=== PATIENT | male | born 1955 | race Caucasian/White ===

== ENCOUNTER 2018-10-13 11:47 | Emergency (ER) | payer MEDICARE, OTHER ==
[2018-10-13] MEDS ORDERED: MORPHINE SULFATE INJ 10 MG/ML VIAL ONE (11:51)
--- NOTE | 2018-10-13 12:06 | ED.PDOC ---
History of Present Illness - General Chief Complaint: Chest Pain/OR Stated Complaint: chest pain Time Seen by Provider: 10/13/18 12:03 Source: patient, EMS Exam Limitations: no limitations - History of Present Illness Initial Comments: Matt Chambers 63 y/o male brought by EMS to ER with sharp chest pain started at 0900H which got worse for the last 2-3 hours.Had cold sweats,radiates to neck and arms.Denies previous cardiac history. Timing/Duration: 1-3 hours Severity: moderate Location: central Activities at Onset: activity Prior Chest Pain/Cardiac Workup: no prior chest pain Improving Factors: nothing Worsening Factors: nothing Nitro Today/Relief: 0.4 mg x 3 Aspirin Treatment Today: 81 mg x 4 Associated Symptoms: other - see hpi Allergies/Adverse Reactions: Allergies NO KNOWN ALLERGY Allergy (Verified 10/13/18 12:09) Home Medications: Ambulatory Orders Ranitidine HCl [Ranitidine 75] 75 mg PO DAILY 10/13/18 Review of Systems - Review of Systems Constitutional: States: no symptoms reported EENTM: States: no symptoms reported Respiratory: States: no symptoms reported Cardiology: States: see HPI Gastrointestinal/Abdominal: States: no symptoms reported Genitourinary: States: no symptoms reported Musculoskeletal: States: no symptoms reported Neurological: States: no symptoms reported All other Systems: Reviewed and Negative, No Change from Baseline Past Medical History (General) - Patient Medical History Surgical History: no surgical history - Social History Hx Tobacco Use: Yes Family Medical History - Family History Father Hx Cardiac Disease: Yes - multiple family members Hx Family Diabetes: Yes - multiple family members Mother Family History: Unknown Physical Exam - Physical Exam General Appearance: Alert, Comfortable, No apparent distress Eyes, Ears, Nose, Throat Exam: normal ENT inspection Neck: non-tender, full range of motion, supple, normal inspection Respiratory: lungs clear, normal breath sounds, no respiratory distress Cardiovascular/Chest: normal peripheral pulses, regular rate, rhythm, no murmur Peripheral Pulses: radial,right: 2+, radial,left: 2+ Gastrointestinal/Abdominal: non tender, soft Extremity: no pedal edema, no calf tenderness Neurologic: alert, oriented x 3 Skin Exam: normal color, warm/dry Progress - Progress Progress: 10/13/18 12:08 Vital Signs - 24 hr 10/13/18 11:57 Temperature 96.8 F L Pulse Rate [ 75 monitor] Respiratory 20 Rate Blood Pressure 148/90 [la] O2 Sat by Pulse 96 Oximetry 10/13/18 12:14 Discuss case with manager architectural and patient EKG was sent he stated no STEMI to send patient to [facility] - Results/Orders Results/Orders: 10/13/18 12:00 EKG STAT 10/13/18 12:11 IV Care:Saline Lock per Protoc QSHIFT Telemetry .ONCE Pulse Ox Stat Laboratory Results - last 24 hr 10/13/18 12:20 WBC 10.6 RBC 5.78 Hgb 17.9 Hct 53.3 H MCV 92.2 MCH 30.9 MCHC 33.5 RDW 14.0 Plt Count 256 MPV 10.5 H Absolute Neuts (auto) 6.40 Absolute Lymphs (auto) 3.00 Absolute Monos (auto) 0.80 Absolute Eos (auto) 0.30 Absolute Basos (auto) 0.10 Neutrophils % 60.5 Lymphocytes % 28.4 Monocytes % 7.8 Eosinophils % 2.8 Basophils % 0.5 PT 9.5 INR 0.95 PTT (SP) 26.3 Sodium 135 Potassium 4.8 Chloride 98 L Carbon Dioxide 24 Anion Gap 17.8 BUN 14 Creatinine 0.80 BUN/Creatinine Ratio 17.5 Random Glucose 109 H Serum Osmolality 271.2 L Calcium 9.9 Magnesium 2.0 Total Bilirubin 0.6 Direct Bilirubin < 0.1 Indirect Bilirubin 0.5 AST 23 ALT 19 Alkaline Phosphatase 80 Creatine Kinase 70 CK-MB (CK-2) 3.1 CK-MB (CK-2) % Not Reportable Troponin I 0.02 B-Natriuretic Peptide 7.1 Serum Total Protein 7.5 Albumin 4.4 - EKG/XRAY/CT EKG: Sinus, nonspecific ST T wave Chg Comments: HR 92 Departure - Departure Clinical Impression: Chest pain Qualifiers: Chest pain type: chest pain due to myocardial ischemia Ischemic chest pain type: unstable angina pectoris Qualified Code(s): I20.0 - Unstable angina Time of Disposition: 12:16 Disposition: Transfer to Hospital Condition: Fair Departure Forms: Patient Portal Self Enrollment Referrals: Leo Tiwari MD [Primary Care Provider] - 1-2 Weeks Home Medications: Ambulatory Orders Ranitidine HCl [Ranitidine 75] 75 mg PO DAILY 10/13/18 Transfer to Outside Facility - Transfer Information Accepting Provider:: Dr. Butler Accepting Facility: [facility] Reason for Transfer: labor and delivery registered nurse - cardiolologist interventional
[2018-10-13] MEDS ORDERED: SODIUM CHLORIDE 0.9% (FLUSH) 10 ML SYG IV PRN (12:11)
[2018-10-13] MEDS ORDERED: ONDANSETRON INJ 4 MG/2 ML VIAL IV ONE (12:11)
[2018-10-13] MEDS ORDERED: ASPIRIN TABLET 325 MG TAB PO ONE (12:11)
[2018-10-13] MEDS ORDERED: NITROGLYCERIN 0.4 MG 25 EA TAB SL ONE (12:11)
[2018-10-13] MEDS ORDERED: HEPARIN PREMIX 500 ML ONE (12:12)
[2018-10-13] MEDS ORDERED: HEPARIN SODIUM (PORCINE) 5,000 U/ML VIAL ONE (12:12)
[2018-10-13 12:19] VITALS: TEMP 96.8
[2018-10-13] MEDS ORDERED: HEPARIN SODIUM (PORCINE) 5,000 U/ML VIAL IV ONE (12:23)
[2018-10-13] MEDS ORDERED: NITROGLYCERIN/D5W IV 50,000 MCG in PREMIX BOTTLE 1 BOTTLE IVS SCH (12:30)
[2018-10-13] MEDS ORDERED: HEPARIN PREMIX 25,000 UNITS in PREMIX BAG 1 BAG IVS SCH (12:30)
[2018-10-13] MEDS ORDERED: MORPHINE SULFATE INJ 10 MG/ML VIAL IV ONE ×2 (12:40→12:41)
[2018-10-13 12:54] VITALS: BP 118/70; O2SAT 98
--- NOTE | 2018-10-13 12:55 | RAD ---
CLINICAL HISTORY: stemi MAIN COMPARISON: None. TECHNIQUE: XR CHEST 1 VIEW 10/13/2018 11:54 AM CDT FINDINGS: Cardiac silhouette is normal in size. Lungs are clear without consolidation, atelectasis, mass or edema. There is no pleural effusion. There is no pneumothorax. There are no acute osseous findings. IMPRESSION: Clear lungs. Electronically signed by: Vladimir Medina MD 10/13/2018 12:54 PM CDT
== END 2018-10-13 12:49 | disposition short-term general hospital (02) ==
LOC: ER 11:47
DX: I20.0 Unstable angina (principal); I25.9 Chronic ischemic heart disease, unspecified; Z87.891 Personal history of nicotine dependence
CPT/HCPCS: 36415; 71045; 80048; 80076; 82550; 82553; 83880; 84484; 85025; 85610; 85730; 93005; 94760; J1644; J2270; J2405

== ENCOUNTER → 2018-11-04 | Outpatient (CLI) | payer MEDICARE, OTHER | LOC: SL 19:39 | PROVIDERS: ATTEND Emergency Medicine | DX: G47.33 Obstructive sleep apnea (adult) (pediatric) (principal) ==

== ENCOUNTER 2019-08-17 11:09 | Observation (INO) | payer MEDICARE, OTHER ==
[2019-08-17] MEDS ORDERED: SODIUM CHLORIDE 0.9% (FLUSH) 10 ML SYG IV PRN (11:31)
[2019-08-17] MEDS ORDERED: MECLIZINE HCL 12.5 MG TAB PO ONE (11:32)
--- NOTE | 2019-08-17 12:43 | RAD ---
EXAM DESCRIPTION: XRAY Chest,1 View CLINICAL HISTORY: 64 years Male, dizziness COMPARISON: October 13, 2018. FINDINGS: Cardiomediastinal silhouette is normal. Chronic appearing interstitial markings, unchanged. No focal consolidation, pneumothorax or pleural effusion. IMPRESSION: No acute findings. Electronically signed by: Anthony Hampton MD 08/17/2019 12:39 PM CDT
--- NOTE | 2019-08-17 12:50 | CT ---
EXAM DESCRIPTION: Head CLINICAL HISTORY: 64 years Male fall with head trauma and headache. TECHNIQUE: Axial noncontrast CT head with coronal and sagittal reformats. All CT scans at this facility use dose modulation, iterative reconstruction, and/or weight based dosing when appropriate to reduce radiation dose to as low as reasonably achievable. COMPARISON: None. FINDINGS: Left frontal paramedian hyperdense extra-axial mass measuring approximately 2.1 x 2.0 x 2.7 cm (TV x AP x CC).No intracranial hemorrhage, midline shift, hydrocephalus or extra-axial fluid collection. No obvious large territorial infarction. Atherosclerotic calcification of the intracranial vasculature. Orbits are normal. Moderate ethmoid sinus mucosal thickening. Mastoid air cells are clear. Osseous structures and soft tissues are unremarkable. IMPRESSION: 1. No acute findings. 2. A 2.7 cm left frontal hyperdense extra-axial mass favoring to represent a meningioma. This can be further evaluated with MRI brain with contrast. Electronically signed by: Anthony Hampton MD 08/17/2019 12:46 PM CDT
--- NOTE | 2019-08-17 13:11 | ED.PDOC ---
History of Present Illness - General Chief Complaint: Trauma Stated Complaint: Multiple fals, dizziness, CP, L arm pain Time Seen by Provider: 08/17/19 11:31 Source: patient, RN notes reviewed, Vital Signs reviewed Exam Limitations: no limitations - History of Present Illness Initial Comments: Patient is a 64-year-old white male who presents with complaints of dizziness and repeated falls over the last couple of days. Patient also states that he has a headache, moderate intensity, throbbing, worse when he stands up. Better when he lays down. The dizziness is worsened as well as the generalized fatigue when he stands up or attempts to walk. It improves markedly after he lays down and rests. All of his symptoms get worse with standing. Improved with resting. Patient also complains of palpitations and low heart rate. Timing/Duration: 24 hours - For the last 3 days, constant, getting worse Severity: moderate Improving Factors: rest Worsening Factors: movement Associated Symptoms: headaches, malaise, weakness Allergies/Adverse Reactions: Allergies NO KNOWN ALLERGY Allergy (Verified 08/17/19 12:00) Home Medications: Ambulatory Orders Aspirin [Aspirin Low Strength] 81 mg PO QAM 08/17/19 Atorvastatin Calcium 40 mg PO QPM 08/17/19 Benzonatate 100 mg PO TID PRN 08/17/19 Carvedilol 3.125 mg PO BID 08/17/19 Clopidogrel Bisulfate 75 mg PO DAILY 08/17/19 Famotidine 40 mg PO DAILY 08/17/19 Gabapentin 300 mg PO TID 08/17/19 Lisinopril 5 mg PO QAM 08/17/19 metFORMIN XR [Glucophage XR] 500 mg PO QAM 08/17/19 Review of Systems - Review of Systems Constitutional: States: see HPI, malaise, weakness. Denies: chills, fever EENTM: States: see HPI, blurred vision. Denies: double vision Respiratory: States: no symptoms reported. Denies: cough, short of breath, stridor, wheezing Cardiology: States: see HPI, palpitations. Denies: chest pain, syncope Gastrointestinal/Abdominal: States: no symptoms reported. Denies: abdominal pain, diarrhea, nausea, vomiting Genitourinary: States: no symptoms reported Musculoskeletal: States: no symptoms reported. Denies: back pain, neck pain Skin: States: no symptoms reported. Denies: change in color, dryness, rash Neurological: States: see HPI, headache, weakness, other - Dizziness and vertigo. Endocrine: States: no symptoms reported Hematologic/Lymphatic: States: no symptoms reported All other Systems: Reviewed and Negative, No Change from Baseline Past Medical History (General) - Patient Medical History Hx Stroke: No Hx Asthma: Yes Hx of COPD: No Hx Cardiac Disorders: Yes - AZ and stent Hx Congestive Heart Failure: No Hx Hypertension: Yes Hx Diabetes: Yes Hx Gastroesophageal Reflux: Yes Hx Cancer: No Hx Hepatitis C: No Surgical History: coronary bypass surgery, other - Vaccination History Hx Tetanus, Diphtheria Vaccination: No Hx Influenza Vaccination: No Hx Pneumococcal Vaccination: No - Social History Hx Tobacco Use: Yes Hx Alcohol Use: No Hx Substance Use: No Hx Substance Use Treatment: No Hx Depression: No - Female History Patient is a Female of Child Bearing Age (10 -59 yrs old): No Patient : No Family Medical History - Family History Mother Family History: Unknown Father Hx Cardiac Disease: Yes - multiple family members Hx Family Diabetes: Yes - multiple family members Physical Exam - Physical Exam General Appearance: Alert, Anxious, Obvious distress, Obese, Well Developed, Well Groomed, Well Hydrated, Well Nourished Eye Exam: bilateral normal Ears, Nose, Throat: hearing grossly normal, normal ENT inspection, normal pharynx Neck: non-tender, full range of motion, supple, normal inspection Respiratory: chest non-tender, lungs clear, normal breath sounds, no respiratory distress, no accessory muscle use Cardiovascular/Chest: normal peripheral pulses, no edema, no gallop, no murmur, bradycardia - Marked bradycardia in the high 30s. Peripheral Pulses: radial,right: 2+, radial,left: 2+ Gastrointestinal/Abdominal: normal bowel sounds, non tender, soft Back Exam: normal inspection, no CVA tenderness, no vertebral tenderness Extremity: normal range of motion, non-tender, normal inspection Neurologic: adjuster electrical contacts II-XII nml as tested, no motor/sensory deficits, alert, normal mood/affect, oriented x 3 Skin Exam: normal color, warm/dry Lymphatic: no adenopathy Progress - Progress Progress: Differential diagnosis: Acute AZ, medication reaction, skull fracture, intracranial bleed among others. 08/17/19 13:32 Patient's EKG with marked bradycardia. I suspect this is secondary to his carvedilol. Troponin is negative. Chest x-ray is unremarkable. Head CT shows no fracture or enter cranial bleed. Patient is improved in regards to his vertigo after the meclizine, but he is still dizzy. Plan on admission to the hospital for further evaluation. I have discussed this plan of care with the patient and his and they voiced understanding and agreement. I discussed this with Aleksandr Abraham NP, and he has graciously accepted the patient for admission. Blade Pagan M.D. #[id number] - Results/Orders Results/Orders: EXAM DESCRIPTION: Head CLINICAL HISTORY: 64 years Male fall with head trauma and headache. TECHNIQUE: Axial noncontrast CT head with coronal and sagittal reformats. All CT scans at this facility use dose modulation, iterative reconstruction, and/or weight based dosing when appropriate to reduce radiation dose to as low as reasonably achievable. COMPARISON: None. FINDINGS: Left frontal paramedian hyperdense extra-axial mass measuring approximately 2.1 x 2.0 x 2.7 cm (TV x AP x CC).No intracranial hemorrhage, mid line shift, hydrocephalus or extra-axial fluid collection. No obvious large territorial infarction. Atherosclerotic calcification of the intracranial vasculature. Orbits are normal. Moderate ethmoid sinus mucosal thickening. Mastoid air cells are clear. Osseous structures and soft tissues are unremarkable. IMPRESSION: 1. No acute findings. 2. A 2.7 cm left frontal hyperdense extra- axial mass favoring to represent a meningioma. This can be further evaluated with MRI brain with contrast. Electronically signed by: Anthony Hampton MD 08/17/2019 12:46 PM EXAM DESCRIPTION: XRAY Chest,1 View CLINICAL HISTORY: 64 years Male, dizziness COMPARISON: October 13, 2018. FINDINGS: Cardiomediastinal silhouette is normal. Chronic appearing interstitial markings, unchanged. No focal consolidation, pneumothorax or pleural effusion. IMPRESSION: No acute findings. Electronically signed by: Anthony Hampton MD 08/17/2019 12:39 PM EKG performed 17 August 2019 1117 hrs.: Marked sinus bradycardia at 47 bpm, left axis deviation, possible anterior infarct, age indeterminate, abnormal EKG. No previous EKG available for comparison at this time. 08/17/19 11:30 CARDIAC ENZYME GROUP Stat COMPLETE METABOLIC PROFILE Stat 08/17/19 11:31 Sodium Chloride 0.9% (Flush) [Saline Flush Syringe] 10 ml IV PRN PRN 08/17/19 11:45 EKG STAT Laboratory Results - last 24 hr 08/17/19 08/17/19 08/17/19 10:28 11:30 11:30 WBC 7.4 RBC 4.66 L Hgb 14.6 Hct 44.7 MCV 96.0 H MCH 31.4 H MCHC 32.7 L RDW 13.1 Plt Count 209 MPV 10.0 Absolute Neuts (auto) 4.10 Absolute Lymphs (auto) 2.20 Absolute Monos (auto) 0.70 Absolute Eos (auto) 0.30 Absolute Basos (auto) 0.10 Neutrophils % 55.1 Lymphocytes % 30.0 Monocytes % 9.8 H Eosinophils % 4.3 Basophils % 0.8 PT INR PTT (SP) Sodium 139 Potassium 4.6 Chloride 107 Carbon Dioxide 26 Anion Gap 10.6 L BUN 12 Creatinine 0.73 BUN/Creatinine Ratio 16.4 POC Glucose Random Glucose 106 H Serum Osmolality 277.7 Calcium 9.2 Total Bilirubin 0.6 AST 20 ALT 20 Alkaline Phosphatase 68 Creatine Kinase 69 CK-MB (CK-2) 3.1 Troponin I 0.03 B-Natriuretic Peptide Serum Total Protein 6.9 Albumin 4.0 Globulin 2.9 Albumin/Globulin Ratio 1.4 Urine Color Yellow Urine Appearance Clear Urine pH 6.0 Ur Specific [place] 1.010 Urine Protein Negative Urine Glucose (UA) Negative Urine Ketones Negative Urine Blood Negative Urine Nitrite Negative Urine Bilirubin Negative Urine Urobilinogen 0.2 Ur Leukocyte Esterase Negative Urine RBC 0 Urine WBC 0 Ur Epithelial Cells 0 Urine Bacteria 0 08/17/19 08/17/19 08/17/19 11:30 11:30 11:30 WBC RBC Hgb Hct MCV MCH MCHC RDW Plt Count MPV Absolute Neuts (auto) Absolute Lymphs (auto) Absolute Monos (auto) Absolute Eos (auto) Absolute Basos (auto) Neutrophils % Lymphocytes % Monocytes % Eosinophils % Basophils % PT 10.2 INR 1.03 PTT (SP) 24.7 Sodium Potassium Chloride Carbon Dioxide Anion Gap BUN Creatinine BUN/Creatinine Ratio POC Glucose 95 Random Glucose Serum Osmolality Calcium Total Bilirubin AST ALT Alkaline Phosphatase Creatine Kinase CK-MB (CK-2) Troponin I B-Natriuretic Peptide 9.6 Serum Total Protein Albumin Globulin Albumin/Globulin Ratio Urine Color Urine Appearance Urine pH Ur Specific [place] Urine Protein Urine Glucose (UA) Urine Ketones Urine Blood Urine Nitrite Urine Bilirubin Urine Urobilinogen Ur Leukocyte Esterase Urine RBC Urine WBC Ur Epithelial Cells Urine Bacteria Vital Signs 08/17/19 08/17/19 08/17/19 11:10 11:13 12:00 Temperature 97.6 F Pulse Rate [ 45 L 45 L 39 L Pulse ox] Respiratory 16 16 10 L Rate Blood Pressure 179/71 148/65 [L brachial] O2 Sat by Pulse 95 95 Oximetry 08/17/19 13:00 Temperature Pulse Rate [ 37 L Pulse ox] Respiratory 16 Rate Blood Pressure 123/70 [L brachial] O2 Sat by Pulse 95 Oximetry - EKG/XRAY/CT CT Ordered: Yes Departure - Departure Clinical Impression: Symptomatic bradycardia, Dizziness Idiosyncratic reaction to medication after proper dose Qualifiers: Encounter type: initial encounter Qualified Code(s): T50.905A - Adverse effect of unspecified drugs, medicaments and biological substances, initial encounter Time of Disposition: 13:35 Disposition: Admit Patient Condition: Fair Departure Forms: ED Discharge - Pt. Copy, Patient Portal Self Enrollment Referrals: BELEN MCCANN [Primary Care Provider] - 1-2 Weeks Home Medications: Ambulatory Orders Aspirin [Aspirin Low Strength] 81 mg PO QAM 08/17/19 Atorvastatin Calcium 40 mg PO QPM 08/17/19 Benzonatate 100 mg PO TID PRN 08/17/19 Carvedilol 3.125 mg PO BID 08/17/19 Clopidogrel Bisulfate 75 mg PO DAILY 08/17/19 Famotidine 40 mg PO DAILY 08/17/19 Gabapentin 300 mg PO TID 08/17/19 Lisinopril 5 mg PO QAM 08/17/19 metFORMIN XR [Glucophage XR] 500 mg PO QAM 08/17/19 Decision To Admit - Decistion To Admit Decision to Admit Date: 08/17/19 Decision to Admit Time: 13:00
--- NOTE | 2019-08-17 13:33 | HP ---
SUPERVISING PHYSICIAN: Micky Tariq MD CHIEF COMPLAINT: Dizziness, chest pain. HISTORY OF PRESENT ILLNESS: Mr. Chambers is a 64-year-old male patient who presented to the Emergency Department today with complaint of multiple falls over the last week as well as chest pain that has apparently been present over three weeks. He describes that he has been having some mild chest pain that seems to be more sharp, reproducible with palpation of the chest wall. He has been helping his brother apparently remodel a house and at some point fell through some rafters and he actually does on exam have a large bruise, ecchymotic area to his left upper quadrant, but no bruising to the chest. He also has a history of vertigo and has been complaining of vertigo over the last several days, which normally he can just slowly adjust himself, but it apparently it got worse today. In the Emergency Room, he was given meclizine which did resolve his dizziness. He still has some mild dizziness when he stands up, but has noted that on the heart monitor, he was actually bradycardia with a heart rate in the low 40s to high 30s at times although his blood pressure is stable with his initial blood pressure in the Emergency Room of 179/71 with a heart rate of 45. He does take a beta nataliia in the form of carvedilol and he had a stent placement due to chest pains last year by Dr. Butler. Again, he endorses his chest pain has been present for a little over three weeks. It does not really seemed to be worsened by exertional effort, but it is reproducible at times. His labs in the Emergency Room showed his troponin to be at 0.03. His electrolytes were normal. Calcium normal. CBC showed normal white count at 7,400 without a left shift. Urinalysis was unremarkable. 12-lead EKG showed sinus bradycardia with no ST or T wave changes noted. Given his bradycardic rhythm and that he is on a beta nataliia with concerns that his dosing may need to be readjusted and some of his dizziness may be attributed to his beta nataliia along with his chronic vertigo. He also again is having chest pains and will need to be placed in observation for further management of his bradycardia with close observation and further rule out of acute coronary syndrome. He did have a CT of the head without contrast which per radiologic interpretation showed a hyperdense extraaxial mass measuring about 2.7 cm that represents possible meningioma and in talking to the patient, he is not aware of any previous findings on any CTs in the past, but denies any other neurologic symptoms other than dizziness, which again resolved with meclizine. PAST MEDICAL HISTORY: 1. Diabetes mellitus, type 2. 2. Chronic vertigo. 3. Cardiovascular disease with stent placement x1 in the past year. 4. Obstructive sleep apnea utilizing CPAP. PAST SURGICAL HISTORY: 1. Bilateral cataracts. 2. Left ankle surgery in his 20s. HOME MEDICATIONS: 1. Benzoate 100 mg t.i.d. as needed. 2. Aspirin 81 mg daily. 3. Metformin 500 mg daily. 4. Famotidine 40 mg daily. 5. Carvedilol 3.125 mg b.i.d. 6. Atorvastatin 40 mg daily. 7. Plavix 75 mg daily. 8. Gabapentin 300 mg b.i.d. 9. Lisinopril 5 mg daily. ALLERGIES: NO KNOWN DRUG ALLERGIES. FAMILY HISTORY: Both mother and father are and had history of cancer, but he is not sure what they were, otherwise unremarkable. SOCIAL HISTORY: The patient is and lives in [place]. He is retired. He does smoke, currently he says 3 to 4 cigarettes a day, but in the past several years before this, he was smoking up to one pack a day well over 40 years. He denies any alcohol or illicit drug usage. REVIEW OF SYSTEMS: CONSTITUTIONAL: Positive for general malaise and weakness as noted in history of present illness. Negative for any fevers, chills or unintentional weight loss. HEENT: Positive for some blurred vision associated with his dizziness and possible pre-syncopal episode. Negative for headaches, sore throats, earaches, nasal congestion. RESPIRATORY: Denies coughing, wheezing, shortness of breath. CARDIOVASCULAR: As noted in history of present illness, palpitations with chest pressure. He denies any actual chest pain. He has had apparently some presyncopal episodes. GASTROINTESTINAL: Negative for nausea, vomiting, diarrhea, constipation or abdominal pain. GENITOURINARY: Negative for dysuria, hematuria, polyuria. MUSCULOSKELETAL: Negative for back pain, arthralgias. SKIN: Negative for lesions, rashes, moles or unexplained changes. He does have an area of ecchymosis from a past fall. NEUROLOGIC: As noted in history of present illness, some dizziness with associated vertigo. Denies any headaches. He does have some generalized weakness. No other focal motor deficits, no vision changes other than blurred vision associated with the dizziness that resolves. HEMATOLOGIC: Denies easy bruising, unexplained bleeding or transfusion reactions. PHYSICAL EXAMINATION: VITAL SIGNS: Temperature 97.6, pulse 45, blood pressure 179/71, respirations 16, saturation 95% on room air. GENERAL: The patient is resting comfortably. He does appear tired, but just took a dose of meclizine prior to admission. He is in no acute distress. He is a little obese, but well hydrated. HEENT: Tympanic membranes clear bilaterally. Oropharynx is pink, moist without any lesions. NECK: Supple, nontender with full range of motion. No jugular venous distention noted. CHEST: There is some chest wall tenderness over the third and fourth intercostal spaces, just above the nipple, midclavicular line. Chest wall does show equal excursion. No obvious rales, rhonchi or wheezing. Breath sounds equal bilaterally. CARDIOVASCULAR: Regular rate and rhythm without any appreciable murmurs, gallops, or rubs. It was showing bradycardia on the monitor in the high 30s to 40s. ABDOMEN: Obese, but soft, nontender. Positive bowel sounds. There is an area of ecchymosis to the left upper quadrant that is a little tender on palpation, but appears to be to be old. BACK: Without any obvious trauma. There is no CVA tenderness, no vertebral tenderness demonstrated. EXTREMITIES: There is no cyanosis, clubbing or edema. NEUROLOGIC: Cranial nerves II-XII are grossly intact. Facial features are symmetrical. Extraocular movements are within normal limits. There is no nystagmus noted. The patient is alert and oriented times three. LABORATORY: CBC showed white count 7,400, hemoglobin 14.6, hematocrit 44.7. Differential was without a left shift. RBCs indices indicated a macrocytosis. Coagulation studies showed normal PT, PTT. Chemistries showed normal electrolytes, creatinine 0.73, glucose 95. Liver functions all within normal limits. TSH pending. BNP normal at 9.6. Initial troponins x2 were 0.03. Urinalysis was within normal limits. RADIOLOGY: Chest x-ray per radiologic interpretation showed no acute findings. CT of the head without contrast per radiologic interpretation showed no acute findings, but there was note of a 2.7 cm left frontal hyperdense extraaxial mass which favors to represent a meningioma. Recommendation was to followup with MRI of the brain with contrast for further evaluation. ASSESSMENT: 1. Symptomatic bradycardia, currently on a beta nataliia. 2. Chest pain that is reproducible with initial workup showing negative troponins, needing extended rule out with the patient having history of previous stent placement. 3. Diabetes mellitus, type 2. 4. Hypertension. 5. History of vertigo with acute episode, resolving with meclizine. 6. Finding on CT of the head of a 2.7 cm hyperdense extraaxial mass favoring possible meningioma, needing further workup as an outpatient with an MRI with contrast. PLAN: Mr. Chambers is going to be placed in observation on close cardiac telemetry monitoring. I suspect that his bradycardia is more likely related to his beta nataliia, but I cannot completely rule out an acute coronary event although the patient's chest pain seems to be reproducible and he does have previous stent placement although he describes his chest pain as being present for three weeks. We will hold his beta nataliia tonight. It may need to be decreased in dosage, but we will certainly need to touch base with Dr. Butler tomorrow if possible, who is his business technology analyst, if the bradycardia does not seem to be resolving without change in his medication. I have ordered some orthostatic blood pressures. He does not appear to be hypovolemic. We will hold off on any additional fluids at this point. We will resume all his other medications as appropriate to his care. He will be on DVT prophylaxis with Lovenox. I did discuss getting his CPAP up here, but he has no way to get it up here tonight. I anticipate he will probably go home tomorrow, so he should do fine tonight. We will utilize oxygen and watch him closely. We will repeat his enzymes and EKG as appropriate for further rule out of acute coronary syndrome. His primarily doctor is Dr. Goel and, again, he sees Dr. Butler. If his symptoms do not seem to be improving as expected with holding of his medications, we will need to touch base with Dr. Butler. Until the patient can transition to outpatient management, we will continue to monitor and treat as needed. #[id number] [facility]
[2019-08-17] MEDS ORDERED: DEXTROSE 50% 25 GM/50 ML SYG IV PRN (14:12)
[2019-08-17] MEDS ORDERED: GLUCAGON INJ 1 MG VIAL SUBCU PRN (14:12)
[2019-08-17] MEDS ORDERED: IV SET AND CAP CHANGE INJ INJ SCH (14:30)
[2019-08-17] MEDS ORDERED: NITROGLYCERIN 0.4 MG 25 EA TAB SL PRN (14:38)
[2019-08-17] MEDS ORDERED: NITROGLYCERIN 0.4 MG 25 EA TAB SL ONE (14:38)
[2019-08-17] MEDS ORDERED: KETOROLAC TROMETHAMINE INJ 30 MG/ML VIAL IV ONE (14:41)
[2019-08-17] MEDS: NITROGLYCERIN 0.4 MG/HR PATCH TOP SCH (15:40)
[2019-08-17] MEDS: INSULIN LISPRO 100 UNITS/ML PEN SUBCU SCH ×2 (16:35→21:24)
[2019-08-17] MEDS ORDERED: ENOXAPARIN SODIUM 40 MG/0.4 ML SYG SUBCU SCH (21:00)
[2019-08-17] MEDS: GABAPENTIN 300 MG CAP PO SCH (21:14)
[2019-08-18] MEDS ORDERED: SODIUM CHLORIDE 0.9% 1000ML 1,000 ML IVS ONE (02:20)
[2019-08-18] MEDS: INSULIN LISPRO 100 UNITS/ML PEN SUBCU SCH ×2 (07:19→12:07)
[2019-08-18] MEDS ORDERED: CLOPIDOGREL 75 MG TAB PO SCH (09:00)
[2019-08-18] MEDS ORDERED: LISINOPRIL 5 MG TAB PO SCH (09:00)
[2019-08-18] MEDS ORDERED: ASPIRIN (CHEWABLE) 81 MG TAB PO SCH (09:00)
[2019-08-18] MEDS ORDERED: metFORMIN XR 500 MG TAB.ER.24 PO SCH (09:00)
[2019-08-18] MEDS ORDERED: FAMOTIDINE 20 MG TAB PO SCH (09:00)
[2019-08-18] MEDS: GABAPENTIN 300 MG CAP PO SCH (09:40)
[2019-08-18] MEDS: NITROGLYCERIN 0.4 MG/HR PATCH TOP SCH (09:40)
[2019-08-18 13:45] VITALS: BP 113/58; TEMP 98; O2SAT 95
[2019-08-18] MEDS ORDERED: ATORVASTATIN 20 MG TAB PO SCH (21:00)
[2019-08-18] MEDS ORDERED: REMOVE OLD PATCH TOP SCH (21:00)
--- NOTE | 2019-08-19 10:09 | DS ---
SUPERVISING PHYSICIAN: Bhavana Ruth MD DISCHARGE DIAGNOSIS: 1. Symptomatic bradycardia, currently on a beta nataliia, although it has been discontinued by Dr. Butler. 2. Chest pain that is reproducible with initial workup showing negative troponins, needing extended rule out with the patient having history of previous stent placement. 3. Diabetes mellitus, type 2. 4. Hypertension. 5. History of vertigo with acute episode, resolving with meclizine. 6. Finding on CT of the head of a 2.7 cm hyperdense extraaxial mass favoring possible meningioma, needing further workup as an outpatient with an MRI with contrast. HISTORY OF PRESENT ILLNESS: This is a 64-year-old male patient who presented to the Emergency Department today with complaint of multiple falls over the last week as well as chest pain that has apparently been present over three weeks. He describes that he has been having some mild chest pain that seems to be more sharp, reproducible with palpation of the chest wall. He has been helping his brother apparently remodel a house and at some point fell through some rafters and he actually does on exam have a large bruise, ecchymotic area to his left upper quadrant, but no bruising to the chest. He also has a history of vertigo and has been complaining of vertigo over the last several days, which normally he can just slowly adjust himself, but it apparently it got worse today. In the Emergency Room, he was given meclizine which did resolve his dizziness. He still has some mild dizziness when he stands up, but has noted that on the heart monitor, he was actually bradycardia with a heart rate in the low 40s to high 30s at times although his blood pressure is stable with his initial blood pressure in the Emergency Room of 179/71 with a heart rate of 45. He does take a beta nataliia in the form of carvedilol and he had a stent placement due to chest pains last year by Dr. Butler. Again, he endorses his chest pain has been present for a little over three weeks. It does not really seemed to be worsened by exertional effort, but it is reproducible at times. His labs in the Emergency Room showed his troponin to be at 0.03. His electrolytes were normal. Calcium normal. CBC showed normal white count at 7,400 without a left shift. Urinalysis was unremarkable. 12-lead EKG showed sinus bradycardia with no ST or T wave changes noted. Given his bradycardic rhythm and that he is on a beta nataliia with concerns that his dosing may need to be readjusted and some of his dizziness may be attributed to his beta nataliia along with his chronic vertigo. He also again is having chest pains and will need to be placed in observation for further management of his bradycardia with close observation and further rule out of acute coronary syndrome. He did have a CT of the head without contrast which per radiologic interpretation showed a hyperdense extraaxial mass measuring about 2.7 cm that represents possible meningioma and in talking to the patient, he is not aware of any previous findings on any CTs in the past, but denies any other neurologic symptoms other than dizziness, which again resolved with meclizine. HOSPITAL COURSE: Mr. Chambers was placed in observation and placed on close cardiac monitoring. His Coreg was held and he was placed on chest pain guidelines. His cardiac enzymes were negative. I spoke with Dr. Butler today who felt that his Coreg should be discontinued and he should be sent home on playground monitor and he would likely see him early next week. He was placed on DVT prophylaxis with Lovenox. There were no changes on his EKG. With his CT findings, he was also scheduled for an MRI as well as an outpatient echocardiogram. He will be discharged home in stable condition with close followup with Dr. Goel as well as Dr. Butler. LABORATORY: His blood sugars ran between 95 and 192. Other labs are per the history of present illness. Serial cardiac enzymes were negative. TSH 3.94. Urinalysis was negative. RADIOLOGY: As per the history of present illness. DISCHARGE PLAN: The patient will be discharged home in stable condition. He has been cautioned to have assistance with any ambulation until he sees Dr. Butler. He is to increase his activity as tolerated and resume his previous diet. He is also to continue his previous home medications with the exception of his Coreg which is to be discontinued until he follows up with Dr. Butler. His followup appointment Dr. Butler is for 08/25/19 at 1:[address] Butler's office in [place]. He is to call Dr. Goel's office to get a followup appointment within the next one to two weeks. Further testing to be done at [facility] is an MRI of the brain on 08/22/19, at 10 am, followed by an echocardiogram on Sunday08/22/19 at 11 am. He is to call Dr. Goel's office, Dr. Butler's office or return to the hospital for any problems or complications. Respiratory therapy have issues the patient cardiac telemetry and have given him education on the use and he will have it for two weeks. DISCHARGE MEDICATIONS: 1. Aspirin. 2. Metformin. 3. Pepcid. 4. Atorvastatin. 5. Plavix. 6. Gabapentin. 7. Lisinopril. 8. Benzonatate. #[id number] Fax to: [address] [place]. [facility]
== END 2019-08-18 14:10 | disposition home or self-care (01) ==
LOC: ER 11:09 → MS 13:30
PROVIDERS: ADMIT Nurse Practitioner Family; ATTEND Nurse Practitioner Acute Care
DX: R00.1 Bradycardia, unspecified (principal); R07.89 Other chest pain; E11.9 Type 2 diabetes mellitus without complications; I10 Essential (primary) hypertension; R42 Dizziness and giddiness; R22.0 Localized swelling, mass and lump, head; R94.02 Abnormal brain scan; R29.6 Repeated falls; I25.10 Atherosclerotic heart disease of native coronary artery without angina pectoris; G47.33 Obstructive sleep apnea (adult) (pediatric); F17.210 Nicotine dependence, cigarettes, uncomplicated; K21.9 Gastro-esophageal reflux disease without esophagitis; I25.2 Old myocardial infarction; Z79.02 Long term (current) use of antithrombotics/antiplatelets; Z79.84 Long term (current) use of oral hypoglycemic drugs; Z79.82 Long term (current) use of aspirin; Z79.899 Other long term (current) drug therapy; Z95.5 Presence of coronary angioplasty implant and graft; Z95.1 Presence of aortocoronary bypass graft; Z99.89 Dependence on other enabling machines and devices; Z91.81 History of falling
CPT/HCPCS: 96361; 96374; 96372; J1885; J7030; J1650; J1815; 82553; 80053; 82948 ×5; 36415; 81001; 85025; 82550; 85730; 85610; 84443; 84484 ×2; 83880; 36416 ×2; 71045; 70450; 94760 ×2; 99406; 94762; 99285; 93005 ×2; 93229; G0378

== ENCOUNTER → 2019-08-22 | Outpatient (CLI) | payer MEDICARE, OTHER ==
--- NOTE | 2019-08-22 14:02 | MRI ---
EXAM DESCRIPTION: Brain w/Contrast CLINICAL HISTORY: OTHER DISORDER OF THE BRAIN COMPARISON: CT head August 17, 2019 TECHNIQUE: MRI of the brain is performed according to our usual protocol including multiplanar multi sequence technique. Post gadolinium imaging is performed following IV administration of routine adult dose of gadolinium contrast. FINDINGS: Sagittal T1 images show intact corpus callosum. A mass is seen in the left frontal parafalcine region with T1 signal intensity equal to that of christensen matter. This measures 2.9 cm and is consistent with a meningioma. This was seen on the previous CT head August 17, 2019 Normal pituitary gland with normal T1 appearance of the [place] and medulla and upper cervical cord. Normal signal intensity within the clivus and calvarium. Axial T2 fat sat images reveal preservation of intracranial vascular flow voids. Left parafalcine mass appears extra-axial measuring 2.6 x 2 cm. Tiny amount of fluid around the inferior aspect of the mass is seen consistent with indentation of the adjacent brain parenchyma rather than invasion. Signal intensity is mildly increased on the T2 images compared to the adjacent christensen matter. Other than meningioma, extra-axial metastasis could conceivably have this appearance but is statistically much less likely unless the patient has a history of primary neoplasm elsewhere. Normal christensen matter and white matter T2 signal intensity. Normal ventricles with normal gyral and sulcal fold pattern. The globes appear intact and symmetrical. Minimal nodular mucosal thickening of the inferior maxillary sinuses with patchy mucosal thickening in the ethmoid air cells. Minimal mucosal thickening in the right frontal sinus. No abnormal fluid levels in the paranasal sinuses, tympanic cavities or mastoid air cells. Axial flair images show mild increased signal intensity in the left parasagittal frontal extra-axial mass compared to christensen matter. Few tiny foci of increased signal intensity in the subcortical and central white matter of the cerebral hemispheres consistent with minimal chronic microvascular ischemic change. Diffusion weighted show no significant hyperintense focus to suggest true restricted diffusion. Tiny equivocal foci of increased signal intensity along the left frontal and left insular christensen matter regions likely artifactual although resolving punctate foci of ischemia could have a similar appearance. Slight increased signal intensity within the brain parenchyma around the periphery of the left frontal extra-axial mass. ADC mapping is negative. Axial T1 precontrast images show normal christensen-white matter differentiation. Signal intensity of the left frontal mass is equal to christensen matter on T1 images. No high signal intensity hemorrhagic lesion of the brain parenchyma. No subdural hematoma. Axial susceptibility weighted images are negative for focal signal loss to suggest abnormal brain parenchymal calcification or hemosiderin deposition. After IV contrast, axial T1 images show normal enhancement of intracranial vessels. Positive enhancing lesion appears extra-axial in the high left frontal parafalcine region with central enhancing vessels. Sharply circumscribed extra-axial lesion in this location is most likely meningioma. The dense relatively uniform enhancement pattern is also consistent with meningioma. Treatment depends on symptomatology. The patient could be evaluated and followed by a neurosurgeon. Coronal T1 postcontrast images show normal dural sinus enhancement with normal enhancement of the pituitary gland. Coronal and sagittal T1 postcontrast images show lesional size of 3 x 2 x 1.9 cm. Slight 1 to 2 mm rightward bowing of the septum is noted at the level of the contact with the mass. Meningioma originating from the anterior falx cerebri is thought most likely. Positive tail side anteriorly. Normal enhancement of the sagittal sinus and other dural sinuses. IMPRESSION: Left frontal parafalcine extra-axial mass with MRI findings consistent with meningioma measuring 3 x 2 x 1.9 cm. See above. Electronically signed by: Javid Prado MD 08/22/2019 2:00 PM CDT
== END ==
LOC: MRI 10:11
PROVIDERS: ATTEND Nurse Practitioner Acute Care
DX: G93.89 Other specified disorders of brain (principal); I51.7 Cardiomegaly; I34.1 Nonrheumatic mitral (valve) prolapse

== ENCOUNTER → 2019-11-18 | Outpatient (CLI) | payer MEDICARE, OTHER ==
--- NOTE | 2019-11-19 09:54 | MRI ---
Study: MRI of the Left Shoulder. Indication: PAIN Technique: Multiplanar, multi sequence MRI of the left shoulder was obtained without intravenous contrast. Comparison: None. Findings: Mild to moderate AC joint osteoarthritis. Type II acromion with mild lateral downsloping. High-grade supraspinatus and infraspinatus tendinosis with high-grade articular tearing of the mid infraspinatus tendon insertion. Tear defect measures 11 mm AP by 9 mm transverse. Additional scattered areas of interstitial fissuring throughout both tendons. No complete rupture. Subscapularis tendinosis. Intracapsular long head biceps tendinosis. Mild atrophy and grade 1 fatty infiltration rotor cuff musculature. Circumferential labral truncation and degeneration. Mild glenohumeral joint osteoarthritis and tiny joint effusion. No acute fracture. Impression: Supraspinatus and infraspinatus tendinosis with scattered interstitial fissuring of both tendons as well as high-grade articular tearing at the mid infraspinatus tendon insertion. Subscapularis tendinosis. Intracapsular long head biceps tendinosis. Mild atrophy and grade 1 fatty infiltration rotator cuff musculature. Circumferential labral truncation and degeneration. Mild glenohumeral joint osteoarthritis. Mild to moderate AC joint osteoarthritis. Electronically signed by: Luiz Harding MD 11/19/2019 9:52 AM CDT
== END ==
LOC: MRI 13:00
PROVIDERS: ATTEND Emergency Medicine
DX: M75.82 Other shoulder lesions, left shoulder (principal); M75.22 Bicipital tendinitis, left shoulder; S46.012A Strain of muscle(s) and tendon(s) of the rotator cuff of left shoulder, initial encounter; S43.432A Superior glenoid labrum lesion of left shoulder, initial encounter; M62.512 Muscle wasting and atrophy, not elsewhere classified, left shoulder; M19.012 Primary osteoarthritis, left shoulder

== ENCOUNTER → 2019-12-18 | Outpatient (CLI) | payer MEDICARE, OTHER ==
--- NOTE | 2019-12-18 17:57 | RAD ---
EXAM DESCRIPTION: Shoulder,Left 2 or More Views CLINICAL HISTORY: 64 years Male, SHOULDER PAIN COMPARISON: 11/18/2019 Findings: Four views/radiographs Location: Left shoulder No acute fracture or dislocation. Mild to moderate acromioclavicular osteoarthritis. Soft tissues are unremarkable. Subacromial space is narrowed. Visualized chest is clear. Mild glenohumeral osteoarthritis. IMPRESSION: No evidence of acute process in the left shoulder. Electronically signed by: Dany Barr MD 12/18/2019 5:56 PM CDT
== END ==
LOC: RAD 07:59
PROVIDERS: ATTEND Orthopaedic Surgery
DX: M25.512 Pain in left shoulder (principal)

== ENCOUNTER → 2020-03-11 | Outpatient (CLI) | payer MEDICARE, OTHER ==
--- NOTE | 2020-03-11 23:52 | MRI ---
EXAM DESCRIPTION: Brain w/o Contrast: MRI. CLINICAL HISTORY: BRAIN TUMOR COMPARISON: MR scan of the brain August 21. TECHNIQUE: Multiplanar, high-field MRI unit, multiple diffusion sequences, multiple conventional sequences without contrast. FINDINGS: Again noted is a smoothly marginated mass in the parasagittal left frontal lobe which is extra-axial and impressing on the anterior and parasagittal meninges. Relatively homogeneous signal except centrally. Minimal hyperintense signal on FLAIR and T2 sequence. Also the STIR gradient signal is slightly increased compared to the subcortical white matter. No hemorrhage. Focal mass effect. Longest dimension is 2.7 cm which is parallel to the cortical christensen matter junction in the sagittal plane. No intra-axial masses and no other extra-axial masses. No cerebral edema. Normal FLAIR and T2-weighted signal in the periventricular white matter and sub-cortical white matter . Bilateral low-density on T2*gradient sequence in the basal ganglia, consistent with iron deposition.. No hemorrhage, no cerebral edema, no mass-effect no diffusion restriction. Normal signal in the brainstem and cerebellar hemispheres.. Concordance of the diffusion and non-diffusion sequences with no diffusion restriction. Cortical sulci, ventricles, and other CSF spaces, and the subdural spaces are elsewhere from the left frontal lobe, normally configured for the patient's age. No effacement or displacement. No midline shift. No extra-axial hemorrhage. Normal flow signal void in the major vessels of the [place], and the venous sinuses. IACs are symmetric bilaterally. Scattered fluid like signal in the right mastoid air cells and focal fluid like signal in the left mastoid air cells stable since the prior study.. No mass effect in the bilateral cerebellopontine angles. Pituitary gland occupies most of the sella. Base of the cerebellar tonsils is at the level of the foramen magnum. Mucoperiosteal thickening involving most of the paranasal sinuses. No interval change. The bony calvarium is intact. IMPRESSION: 1. Meningioma with stable appearance on noncontrast study measuring 2.7 x 2.2 x 2.0 cm. No hemorrhage or cerebral edema. No diffusion restriction. 2. No new site of abnormal white matter signal or diffusion restriction. 3. Stable inflammatory changes in the paranasal sinuses, and bilateral mastoid air cells. Electronically signed by: Javed Javier MD 03/11/2020 11:50 PM [facility]
== END ==
LOC: MRI 14:00
PROVIDERS: ATTEND Neurological Surgery
DX: D32.9 Benign neoplasm of meninges, unspecified (principal); J34.89 Other specified disorders of nose and nasal sinuses; H74.8X3 Other specified disorders of middle ear and mastoid, bilateral